=== PATIENT | female | born 1995 | race Caucasian/White ===

== ENCOUNTER 2020-03-09 09:42 | Outpatient (CLI) | payer BC ==
[2020-03-09] MEDS ORDERED: IBUP200C8 PO (10:16)
[2020-03-09 10:27] LABS: BASOPHILS # (AUTO) 0.03 x10^3/uL (0-0.1); BASOPHILS % (AUTO) 0 % (0-1); EOSINOPHILS # (AUTO) 0.93 x10^3/uL (0-0.4); EOSINOPHILS % (AUTO) 9 % (1-7); LYMPHOCYTES # (AUTO) 2.02 x10^3/uL (1-3.4); LYMPHOCYTES % (AUTO) 20 % (22-44); MD NO; MEAN CORPUSCULAR HEMOGLOBIN 29.6 pg (27.0-34.8); MEAN CORPUSCULAR HGB CONC 33.9 g/dL (32.4-35.8); MEAN CORPUSCULAR VOLUME 87.3 fL (80-100); MEAN PLATELET VOLUME 7.9 fL (7.4-10.4); MONOCYTES # (AUTO) 0.48 x10^3/uL (0.2-0.8); MONOCYTES % (AUTO) 5 % (2-9); NEUTROPHILS # (AUTO) 6.62 x10^3/uL (1.8-6.8); NEUTROPHILS % (AUTO) 66 % (42-75); PLATELET COUNT 299 x10^3/uL (130-400); RED BLOOD COUNT 4.84 x10^6/uL (3.82-5.3); RED CELL DISTRIBUTION WIDTH 12.2 % (9.6-15.2)
[2020-03-09 10:36] LABS: HCG UR SG 1.024 (1.003-1.030); MICROSCOPIC NOT IND
== END 2020-03-09 23:59 | disposition home or self-care (01) ==
LOC: STAR 09:42
PROVIDERS: ATTEND Obstetrics & Gynecology
DX: Z01.818 Encounter for other preprocedural examination (principal); Z11.59 Encounter for screening for other viral diseases; R10.2 Pelvic and perineal pain
CPT/HCPCS: 36415; 81003; 81025; 85025; U0001

== ENCOUNTER 2020-03-13 05:47 | Day surgery (SDC) | payer BC ==
[~2020-03-13] VITALS: Ht 160 cm; Wt 92.0 kg
[~2020-03-13 05:47] MED LIST: IBUP200C8 PO
[2020-03-13] MEDS ORDERED: CHLORHEXIDINE 15 ML UDC MM STA (06:36)
[2020-03-13] MEDS ORDERED: LACTATED RINGERS 1,000 ML IV SCH (06:37)
[2020-03-13] MEDS ORDERED: ACETAMINOPHEN 500 MG TABLET PO ONE (07:00)
[2020-03-13] MEDS ORDERED: BUPIVACAINE/PF-EPI 0.5% 1:200K ONE (07:03)
[2020-03-13] MEDS ORDERED: BUPIVACAINE/PF-EPI 0.25% 1:200K ONE (07:03)
[2020-03-13] MEDS ORDERED: MIDAZOLAM 1 MG/ML, 2ML ONE (07:20)
[2020-03-13] MEDS ORDERED: FENTANYL PF 250 MCG/5ML ONE (07:20)
[2020-03-13 07:26] LABS: HCG UR SG 1.026 (1.003-1.030)
[2020-03-13] MEDS ORDERED: LORazepam 2 MG/ML, 1ML IVPush PRN (07:30)
[2020-03-13] MEDS ORDERED: DIAZEPAM 5 MG/ML, 2ML IVPush PRN (07:30)
[2020-03-13] MEDS ORDERED: OXYcodone 5 MG/5 ML ORAL.SOL UDC PO PRN (07:30)
[2020-03-13] MEDS ORDERED: ACETAMINOPHEN 325 MG TABLET PO PRN (07:30)
[2020-03-13] MEDS ORDERED: PROMETHAZINE 25 MG/ML, 1ML IVPush PRN (07:30)
[2020-03-13] MEDS ORDERED: HYDROmorphone 1 MG/ML, 1ML INJ IVPush PRN (07:30)
[2020-03-13] MEDS ORDERED: ONDANSETRON 2MG/ML, 2ML IVPush PRN (07:30)
[2020-03-13] MEDS ORDERED: PROMETHAZINE 25 MG SUPP PR PRN (07:30)
[2020-03-13] MEDS ORDERED: FENTANYL PF 100 MCG/2ML IV PRN (07:30)
[2020-03-13] MEDS ORDERED: ONDANSETRON 2MG/ML, 2ML ONE (07:57)
[2020-03-13] MEDS ORDERED: CEFAZOLIN 1,000 MG ONE (07:57)
[2020-03-13] MEDS ORDERED: SUCCINYLCHOLINE 20 MG/ML, 10ML ONE (07:57)
[2020-03-13] MEDS ORDERED: PROPOFOL 10 MG/ML, 20ML ONE (07:57)
[2020-03-13] MEDS ORDERED: DEXAMETHASONE 4 MG/ML, 1ML ONE (07:57)
[2020-03-13] MEDS ORDERED: NEOSTIGMINE 1 MG/ML, 10ML ONE (07:57)
[2020-03-13] MEDS ORDERED: ROCURONIUM 10MG/ML,5ML ONE (07:57)
[2020-03-13] MEDS ORDERED: GLYCOPYRROLATE 0.2MG/1ML, 5ML ONE (07:57)
[2020-03-13] MEDS ORDERED: SUGAMMADEX 200 MG/2 ML IVPush ONE (08:27)
[2020-03-13] MEDS ORDERED: OXYcodone 5 MG/5 ML ORAL.SOL UDC ONE (08:57)
[2020-03-13] MEDS ORDERED: FENTANYL PF 100 MCG/2ML ONE (09:08)
== END 2020-03-13 11:00 | disposition home or self-care (01) ==
LOC: OUT 05:47
PROVIDERS: ATTEND Obstetrics & Gynecology
DX: R10.2 Pelvic and perineal pain (principal); N94.6 Dysmenorrhea, unspecified; N83.8 Other noninflammatory disorders of ovary, fallopian tube and broad ligament; N80.0 Endometriosis of uterus; N83.201 Unspecified ovarian cyst, right side; N73.6 Female pelvic peritoneal adhesions (postinfective); D72.829 Elevated white blood cell count, unspecified; E66.9 Obesity, unspecified; Z68.36 Body mass index [BMI] 36.0-36.9, adult
CPT/HCPCS: 58662; 81025; 88304; J0690; J1100; J2250; J2405; J2704; J3010; J7120; J2710; J0330